=== PATIENT | male | born 1950 | race Caucasian/White ===

== ENCOUNTER 2018-01-19 16:03 | Observation (INO) ==
--- NOTE | 2018-01-19 16:52 | Emergency Department Note ---
Disposition Clinical Impression: Chest pain in adult Chest pain Qualifiers: Chest pain type: unspecified Qualified Code(s): R07.9 - Chest pain, unspecified Disposition: Admitted As Inpatient Condition: Undetermined Instructions: Chest Pain (ED), Diabetes Mellitus Type 2 in Adults (ED) Chest Pain HPI - General Chief Complaint: ED Chest Pain Stated Complaint: CP Time Seen by Provider: 01/19/18 16:23 Source: patient Limitations: no limitations - History of Present Illness HPI Narrative: The 67 years old male patient with known case of HTN , hyperlipidemia, DM-2 under insulin presented to ED for chest pain : the pain is 4-5/10 in intensity, localized to lower sub-sternal area sometime goes to the mid back , sharp- pressure type, intermittent in pattern, not associated with nausea , vomiting , SOB, palpitation, fever, trauma. He also denies any syncope/light-headedness. He didn't have similar episode in the past , he also denies any urinary urgency, frequency hesitancy. He further states that his BP and blood sugar has been higher range than before this time. He states that his BP and blood sugar were under control with medication before. Severity scale (1-10): 6 - Related Data Home Medications Medication Instructions Recorded Confirmed Aspirin [Lo-Dose Aspirin EC] 81 mg PO DAILY 04/21/16 08/27/16 Insulin Glargine,Hum.rec.anlog 20 unit SQ HS 04/21/16 08/27/16 [Lantus Solostar] Simvastatin [Zocor] 20 mg PO HS 04/21/16 08/27/16 glyBURIDE [GlyBURIDE] 10 mg PO BID 04/21/16 08/27/16 Fluticasone Propionate Nasal 120 spray NS DAILY 08/27/16 08/27/16 [Flonase] Latanoprost [Xalatan] 2.5 ml OP DAILY 08/27/16 08/27/16 Amitriptyline [Elavil] 01/19/18 Cholecalciferol (Vitamin D3) 01/19/18 [Vitamin D3] Lisinopril-HCTZ 20-12.5 [Prinzide 01/19/18 20-12.5] Previous Rx's Medication Instructions Recorded Amoxicillin/Clavulanate [Augmentin] 875 mg PO BIDWM #19 tablet 08/27/16 Allergies Allergy/AdvReac Type Severity Reaction Status Date / Time No Known Allergies Allergy Verified 08/27/16 21:16 All systems ED: reviewed and negative except as stated. Review of Systems: As Per HPI Constitutional: Reports: as per HPI. Denies: fever, chills, weakness Eyes: Reports: as per HPI. Denies: eye pain ENT ED: Reports: as per HPI. Denies: ear pain, throat pain Cardiovascular: Reports: as per HPI, chest pain, other (Chest pain in lower center chest goes toward mid back , not increase with movement ). Denies: palpitations, dyspnea on exertion, orthopnea, edema, syncope, paroxysmal nocturnal dyspnea Respiratory: Reports: as per HPI. Denies: cough, dyspnea, wheezes Gastrointestinal: Reports: as per HPI, abdominal pain. Denies: nausea, vomiting , diarrhea, constipation, hematemesis Genitourinary: Reports: as per HPI. Denies: urgency, dysuria, frequency, hematuria Musculoskeletal: Reports: as per HPI. Denies: back pain, neck pain, joint swelling Integumentary: Reports: as per HPI. Denies: rash, lesions Neurological: Reports: as per HPI. Denies: headache, weakness Psychiatric: Reports: as per HPI. Denies: anxiety, depression Endocrine: Reports: as per HPI. Denies: fatigue, heat or cold intolerance Hematological/Lymphatic: Reports: as per HPI. Denies: easy bleeding Allergic/Immunologic: Reports: as per HPI. Denies: facial swelling Chest Pain PMH - Past Medical History Medical history: Reports: coronary artery disease, diabetes, hyperlipidemia, hypertension Psychiatric history: Reports: no psych history - Social History Smoking Status: Never smoker Alcohol use: Reports: none Drug use: Reports: none Physical Exam - General Limitations: no limitations General appearance: alert, in no apparent distress - Head Head exam: atraumatic, normocephalic - Eye Eye exam: Present: normal appearance, PERRL, EOMI - ENT ENT exam: normal exam, normal oropharynx - Neck Neck exam: Present: normal inspection, full ROM - Chest Chest inspection: Present: normal inspection, symmetric chest wall rise - Respiratory Respiratory exam: Present: normal lung sounds bilaterally. Absent: respiratory distress, wheezes, accessory muscle use - Cardiovascular Cardiovascular exam: Present: regular rate, normal rhythm, normal heart sounds, +S1, +S2 - Abdominal Exam Abdominal exam: Present: soft, Non-Tender, distention, normal bowel sounds. Absent: guarding - Extremities Exam Extremities exam: Present: normal inspection, full ROM - Expanded Lower Extremity Exam Hip/Pelvis exam: Present: normal inspection - Back Exam Back exam: Present: normal inspection, full ROM. Absent: tenderness, CVA tenderness (R), CVA tenderness (L) - Neurological Exam Neurological exam: Present: alert, oriented X3, CN II-XII intact, normal gait, reflexes normal - Psychiatric Psychiatric exam: Present: normal affect, normal mood. Absent: depressed, agitated - Skin Skin exam: Present: warm, intact, normal color Course Course Narrative: The patient has chest pain with multiple risk factors: hyperlipidemia, HTN, DM , old age . We planned to work up for cardiac origin of pain. His BP and blood sugar ( glucometer ) was high , so we planned to R/O DKA, any foci of infection . His chest Xray is normal, Urinalysis negative , no keton bodies ,His blood sugar is high even though he is on Insulin . 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 Vital Signs Temperature 98.0 F 01/19/18 16:07 Pulse Rate 105 01/19/18 16:07 Respiratory Rate 16 01/19/18 16:07 Blood Pressure 129/78 01/19/18 16:07 O2 Sat by Pulse Oximetry 97 01/19/18 16:07 Temperature 98.0 F 01/19/18 16:07 Pulse Rate 94 01/19/18 17:10 Respiratory Rate 14 01/19/18 17:10 Blood Pressure 141/75 01/19/18 17:10 O2 Sat by Pulse Oximetry 99 01/19/18 17:10 Oxygen Delivery Oxygen Delivery Room Air Chest Pain - Lab Data Result diagrams: 01/19/18 16:46 01/19/18 16:46 Lab Results 01/19/18 01/19/18 01/19/18 Range/Units 16:33 16:34 16:46 WBC 12.9 H (4.3-11.1) K/mcL RBC 4.89 (4.19-5.50) M/mcL Hgb 13.4 (12.9-16.9) g/dL Hct 40.8 (37.5-50.1) % MCV 83.4 (83.0-100.0) fL MCH 27.4 L (28.0-33.3) pg MCHC 32.8 (31.6-35.5) g/dL RDW 12.7 (11.5-14.5) % Plt Count 230 (140-400) K/mcL MPV 11.1 (9.4-12.4) fL Immature Gran % 0.5 (0-4) % Seg Neutrophils % 82.2 % Lymphocytes % 11.0 % Monocytes % 5.1 % Eosinophils % 0.9 % Basophils % 0.3 % Neutrophils # 10.6 H (1.6-8.9) K/mcL Lymphocytes # 1.4 (0.6-4.6) K/mcL Monocytes # 0.7 (0.0-1.3) K/mcL Eosinophils # 0.1 (0.0-0.6) K/mcL Basophils # 0.0 (0.0-0.2) K/mcL Sodium (136-145) mEq/L Potassium (3.5-5.1) mEq/L Chloride (98-107) mEq/L Carbon Dioxide (23-29) mEq/L BUN (8-23) mg/dL Creatinine (0.70-1.30) mg/dL Est GFR ( Amer) (> 60) Est GFR (Non-Af Amer) (> 60) BUN/Creatinine Ratio (6-26) Glucose (70-105) mg/dL POC Glucose 341 H 354 H (70-99) mg/dL Calculated Osmolality (280-300) Calcium (8.6-10.3) mg/dL Troponin I (< 0.04) ng/mL Beta-Hydroxybutyric Acd (0.02-0.27) mmol/L Urine Color (Yellow) Urine Clarity (Clear) Urine pH (5.0-8.0) pH Units Ur Specific [place] (1.010-1.025) Urine Protein (Neg-Trace) mg/dL Urine Glucose (UA) (Normal) mg/dL Urine Ketones (Negative) mg/dL Urine Blood (Negative) Urine Nitrite (Negative) Urine Bilirubin (Negative) Urine Urobilinogen (Normal) mg/dL Ur Leukocyte Esterase (Negative) Ur Culture Indicated? (NO) 01/19/18 01/19/18 01/19/18 Range/Units 16:46 16:46 17:00 WBC (4.3-11.1) K/mcL RBC (4.19-5.50) M/mcL Hgb (12.9-16.9) g/dL Hct (37.5-50.1) % MCV (83.0-100.0) fL MCH (28.0-33.3) pg MCHC (31.6-35.5) g/dL RDW (11.5-14.5) % Plt Count (140-400) K/mcL MPV (9.4-12.4) fL Immature Gran % (0-4) % Seg Neutrophils % % Lymphocytes % % Monocytes % % Eosinophils % % Basophils % % Neutrophils # (1.6-8.9) K/mcL Lymphocytes # (0.6-4.6) K/mcL Monocytes # (0.0-1.3) K/mcL Eosinophils # (0.0-0.6) K/mcL Basophils # (0.0-0.2) K/mcL Sodium 134 L (136-145) mEq/L Potassium 4.4 (3.5-5.1) mEq/L Chloride 97 L (98-107) mEq/L Carbon Dioxide 28 (23-29) mEq/L BUN 27 H (8-23) mg/dL Creatinine 1.58 H (0.70-1.30) mg/dL Est GFR ( Amer) 53 L (> 60) Est GFR (Non-Af Amer) 44 L (> 60) BUN/Creatinine Ratio 17 (6-26) Glucose 353 H (70-105) mg/dL POC Glucose (70-99) mg/dL Calculated Osmolality 297 (280-300) Calcium 10.1 (8.6-10.3) mg/dL Troponin I < 0.03 (< 0.04) ng/mL Beta-Hydroxybutyric Acd 0.14 (0.02-0.27) mmol/L Urine Color Yellow (Yellow) Urine Clarity Clear (Clear) Urine pH 5.5 (5.0-8.0) pH Units Ur Specific [place] > 1.030 H (1.010-1.025) Urine Protein Negative (Neg-Trace) mg/dL Urine Glucose (UA) >=1000 H (Normal) mg/dL Urine Ketones Negative (Negative) mg/dL Urine Blood Negative (Negative) Urine Nitrite Negative (Negative) Urine Bilirubin Negative (Negative) Urine Urobilinogen Normal (Normal) mg/dL Ur Leukocyte Esterase Negative (Negative) Ur Culture Indicated? NO (NO)
[2018-01-19 16:57] LABS: Basophils % 0.3 %; Eosinophils # 0.1 K/mcL (0.0-0.6); Eosinophils % 0.9 %; Hematocrit 40.8 % (37.5-50.1); Hemoglobin 13.4 g/dL (12.9-16.9); Immature Granulocytes % 0.5 % (0-4); Lymphocytes # 1.4 K/mcL (0.6-4.6); Mean Corpuscular HGB Conc 32.8 g/dL (31.6-35.5); Mean Corpuscular Hemoglobin 27.4 pg (28.0-33.3); Mean Corpuscular Volume 83.4 fL (83.0-100.0); Mean Platelet Volume 11.1 fL (9.4-12.4); Monocytes # 0.7 K/mcL (0.0-1.3); Monocytes % 5.1 %; Neutrophils # 10.6 K/mcL (1.6-8.9); Platelet Count 230 K/mcL (140-400); Red Blood Count 4.89 M/mcL (4.19-5.50); Red Cell Distribution Width 12.7 % (11.5-14.5); Segmented Neutrophils % 82.2 %
[2018-01-19 17:18] LABS: BUN/Creatinine Ratio 17 (6-26); Blood Urea Nitrogen 27 mg/dL (8-23); Calcium 10.1 mg/dL (8.6-10.3); Carbon Dioxide 28 mEq/L (23-29); Chloride 97 mEq/L (98-107); Glucose 353 mg/dL (70-105); Osmolality,Calculated 297 (280-300); Potassium 4.4 mEq/L (3.5-5.1); Sodium 134 mEq/L (136-145); Troponin I < 0.03 ng/mL (< 0.04); eGFR For Non-African Americans 44 (> 60)
[2018-01-19 17:20] LABS: Bilirubin,Urine Negative (Negative); Blood,Urine Negative (Negative); Clarity,Urine Clear (Clear); Color,Urine Yellow (Yellow); Glucose,Urine (UA) >=1000 mg/dL (Normal); Ketones,Urine Negative (Negative); Leukocyte Esterase,Urine Negative (Negative); Nitrite,Urine Negative (Negative); PH,Urine 5.5 pH Units (5.0-8.0); Protein,Urine Negative (Neg-Trace); Specific Gravity,Urine > 1.030 (1.010-1.025); Urobilinogen,Urine Normal (Normal)
--- NOTE | 2018-01-19 17:50 | Emergency Department Note ---
Disposition Clinical Impression: Chest pain in adult Chest pain Qualifiers: Chest pain type: unspecified Qualified Code(s): R07.9 - Chest pain, unspecified Disposition: Admitted As Inpatient Condition: Good Referrals: Robbie Evans CNP [Primary Care Provider] - Forms: ED Satisfaction Letter Time of Disposition: 18:14 General Adult HPI - General Chief complaint: ED Chest Pain Stated complaint: CP Time Seen by Provider: 01/19/18 16:23 Source: patient Limitations: no limitations Nursing Notes Reviewed: Yes Vital Signs Reviewed: Yes - History of Present Illness HPI Narrative: 67 year old male presents to the ED with complaints of chest pain tht started last night and state that this is first time occurance although he has some risk factors including DM-insulin dependents, HTN, cholesterol issue which are medically managed he has missed a few dose of his insulin therpay becuase his has been in the hospital and he has been sleeping on a couch and was sleeping in a wierd position and started to have some pain in his chest that rdaites to his back ad position make it worse and staet tht he took his GERD medication and tums and it helped. Christine states that currently he is chest pain free and is not experiencing diaphoresis or exertionl dyspnea. Pain Scale: 6 - Related Data Home Medications Medication Instructions Recorded Confirmed Aspirin [Lo-Dose Aspirin EC] 81 mg PO DAILY 04/21/16 08/27/16 Insulin Glargine,Hum.rec.anlog 20 unit SQ HS 04/21/16 08/27/16 [Lantus Solostar] Simvastatin [Zocor] 20 mg PO HS 04/21/16 08/27/16 glyBURIDE [GlyBURIDE] 10 mg PO BID 04/21/16 08/27/16 Fluticasone Propionate Nasal 120 spray NS DAILY 08/27/16 08/27/16 [Flonase] Latanoprost [Xalatan] 2.5 ml OP DAILY 08/27/16 08/27/16 Amitriptyline [Elavil] 01/19/18 Cholecalciferol (Vitamin D3) 01/19/18 [Vitamin D3] Lisinopril-HCTZ 20-12.5 [Prinzide 01/19/18 20-12.5] Previous Rx's Medication Instructions Recorded Amoxicillin/Clavulanate [Augmentin] 875 mg PO BIDWM #19 tablet 08/27/16 Allergies Allergy/AdvReac Type Severity Reaction Status Date / Time No Known Allergies Allergy Verified 08/27/16 21:16 Constitutional: Reports: as per HPI. Denies: fever, chills, weakness Eyes: Reports: as per HPI. Denies: eye pain ENT ED: Reports: as per HPI. Denies: ear pain, throat pain Cardiovascular: Reports: as per HPI, chest pain, other (Chest pain in lower center chest goes toward mid back , not increase with movement ). Denies: palpitations, dyspnea on exertion, orthopnea, edema, syncope, paroxysmal nocturnal dyspnea Respiratory: Reports: as per HPI. Denies: cough, dyspnea, wheezes Gastrointestinal: Reports: as per HPI, abdominal pain. Denies: nausea, vomiting , diarrhea, constipation, hematemesis Genitourinary: Reports: as per HPI. Denies: urgency, dysuria, frequency, hematuria Musculoskeletal: Reports: as per HPI. Denies: back pain, neck pain, joint swelling Integumentary: Reports: as per HPI. Denies: rash, lesions Neurological: Reports: as per HPI. Denies: headache, weakness Psychiatric: Reports: as per HPI. Denies: anxiety, depression Endocrine: Reports: as per HPI. Denies: fatigue, heat or cold intolerance Hematological/Lymphatic: Reports: as per HPI. Denies: easy bleeding Allergic/Immunologic: Reports: as per HPI. Denies: facial swelling Past Medical History - Past Medical History Medical history: Reports: coronary artery disease, diabetes, hyperlipidemia, hypertension Psychiatric history: Reports: no psych history - Social History Smoking Status: Never smoker Smokeless Tobacco Status: No Alcohol use: Reports: none Drug use: Reports: none Physical Exam - General Limitations: no limitations General appearance: alert, in no apparent distress - Head Head exam: atraumatic, normocephalic, normal inspection - Eye Eye exam: Present: normal appearance, PERRL, EOMI - Expanded Eye Exam Pupils: Left: reactive - ENT ENT exam: normal exam, normal oropharynx, mucous membranes moist - Expanded ENT Exam External ear exam: Present: normal external inspection Mouth exam: Present: normal external inspection Teeth exam: Present: normal inspection Throat exam: Present: normal inspection - Neck Neck exam: Present: normal inspection, full ROM, trachea midline - Chest Chest inspection: Present: normal inspection, symmetric chest wall rise - Respiratory Respiratory exam: Present: normal lung sounds bilaterally - Cardiovascular Cardiovascular exam: Present: regular rate, normal rhythm, normal heart sounds - Abdominal Exam Abdominal exam: Present: soft, Non-Tender. Absent: tenderness, distention, guarding, rebound, rigidity - Extremities Exam Extremities exam: Present: normal inspection, full ROM. Absent: tenderness, pedal edema - Expanded Upper Extremity Exam Shoulder exam: Present: normal inspection, full ROM Arm exam: Present: normal inspection, full ROM Elbow exam: Present: normal inspection, full ROM Forearm/Wrist exam: Present: normal inspection, full ROM Hand exam: Present: normal inspection, full ROM Vascular exam: Normal: capillary refill, radial pulse - Expanded Lower Extremity Exam Hip/Pelvis exam: Present: normal inspection, full ROM Upper leg exam: Present: normal inspection, full ROM Knee exam: Present: normal inspection, full ROM Lower leg exam: Present: normal inspection, full ROM Ankle exam: Present: normal inspection, full ROM Foot/toe exam: Present: normal inspection, full ROM Neurovascular/Tendon exam: Absent: motor deficit, sensory deficit, tendon deficit - Back Exam Back exam: Present: normal inspection, full ROM. Absent: tenderness - Neurological Exam Neurological exam: Present: alert, oriented X3 - Expanded Neurological Exam Patient oriented to: Present: person, place, time Coma Scale Eye Opening: Spontaneous Coma Scale Motor Response: Obeys Commands Coma Scale Verbal Response: Oriented Coma Scale Total: 15 - Psychiatric Psychiatric exam: Present: normal affect, normal mood - Skin Skin exam: Present: warm, dry, intact, normal color Course Course Narrative: I have offered christine admission to the hospital today for futher evlaution of ACS secondary to moderate heart score and he has declined therapy at this time and would like to attempet outpatine evalaution. Christine sttates that he missed a dose of insulin today which is why his glucose is elevated and that ther eis no GAP or acidosis. Christine will be discharge home with followup camelia vázquez. He will be asked to conitnue thi medication regimen and to try notto miss any dose. Christine has been educated on signs and symtpoms to rtutn ot the ED for ACS. Christine understands discharge instructions and comprehends indications to rturn ot the Ed. This was discussed infront of hsi daughter. - Reevaluation(s) Reevaluation #1: christine has changed his mind and would like to be admitted to the hospital. We will admit to medicine. Time: 18:04 - Consultations Consultation #1: discussed case with Dr. Matri and she accepts christine to her service. Time: 18:13 Vital Signs Temperature 98.0 F 01/19/18 16:07 Pulse Rate 105 01/19/18 16:07 Respiratory Rate 16 01/19/18 16:07 Blood Pressure 129/78 01/19/18 16:07 O2 Sat by Pulse Oximetry 97 01/19/18 16:07 Temperature 98.0 F 01/19/18 16:07 Pulse Rate 94 01/19/18 17:10 Respiratory Rate 14 01/19/18 17:10 Blood Pressure 141/75 01/19/18 17:10 O2 Sat by Pulse Oximetry 99 01/19/18 17:10 Oxygen Delivery Oxygen Delivery Room Air Medical Decision Making - Lab Data Result diagrams: 01/19/18 16:46 01/19/18 16:46 Lab Results 01/19/18 01/19/18 01/19/18 Range/Units 16:33 16:34 16:46 WBC 12.9 H (4.3-11.1) K/mcL RBC 4.89 (4.19-5.50) M/mcL Hgb 13.4 (12.9-16.9) g/dL Hct 40.8 (37.5-50.1) % MCV 83.4 (83.0-100.0) fL MCH 27.4 L (28.0-33.3) pg MCHC 32.8 (31.6-35.5) g/dL RDW 12.7 (11.5-14.5) % Plt Count 230 (140-400) K/mcL MPV 11.1 (9.4-12.4) fL Immature Gran % 0.5 (0-4) % Seg Neutrophils % 82.2 % Lymphocytes % 11.0 % Monocytes % 5.1 % Eosinophils % 0.9 % Basophils % 0.3 % Neutrophils # 10.6 H (1.6-8.9) K/mcL Lymphocytes # 1.4 (0.6-4.6) K/mcL Monocytes # 0.7 (0.0-1.3) K/mcL Eosinophils # 0.1 (0.0-0.6) K/mcL Basophils # 0.0 (0.0-0.2) K/mcL Sodium (136-145) mEq/L Potassium (3.5-5.1) mEq/L Chloride (98-107) mEq/L Carbon Dioxide (23-29) mEq/L BUN (8-23) mg/dL Creatinine (0.70-1.30) mg/dL Est GFR ( Amer) (> 60) Est GFR (Non-Af Amer) (> 60) BUN/Creatinine Ratio (6-26) Glucose (70-105) mg/dL POC Glucose 341 H 354 H (70-99) mg/dL Calculated Osmolality (280-300) Calcium (8.6-10.3) mg/dL Troponin I (< 0.04) ng/mL Beta-Hydroxybutyric Acd (0.02-0.27) mmol/L Urine Color (Yellow) Urine Clarity (Clear) Urine pH (5.0-8.0) pH Units Ur Specific [place] (1.010-1.025) Urine Protein (Neg-Trace) mg/dL Urine Glucose (UA) (Normal) mg/dL Urine Ketones (Negative) mg/dL Urine Blood (Negative) Urine Nitrite (Negative) Urine Bilirubin (Negative) Urine Urobilinogen (Normal) mg/dL Ur Leukocyte Esterase (Negative) Ur Culture Indicated? (NO) 01/19/18 01/19/18 01/19/18 Range/Units 16:46 16:46 17:00 WBC (4.3-11.1) K/mcL RBC (4.19-5.50) M/mcL Hgb (12.9-16.9) g/dL Hct (37.5-50.1) % MCV (83.0-100.0) fL MCH (28.0-33.3) pg MCHC (31.6-35.5) g/dL RDW (11.5-14.5) % Plt Count (140-400) K/mcL MPV (9.4-12.4) fL Immature Gran % (0-4) % Seg Neutrophils % % Lymphocytes % % Monocytes % % Eosinophils % % Basophils % % Neutrophils # (1.6-8.9) K/mcL Lymphocytes # (0.6-4.6) K/mcL Monocytes # (0.0-1.3) K/mcL Eosinophils # (0.0-0.6) K/mcL Basophils # (0.0-0.2) K/mcL Sodium 134 L (136-145) mEq/L Potassium 4.4 (3.5-5.1) mEq/L Chloride 97 L (98-107) mEq/L Carbon Dioxide 28 (23-29) mEq/L BUN 27 H (8-23) mg/dL Creatinine 1.58 H (0.70-1.30) mg/dL Est GFR ( Amer) 53 L (> 60) Est GFR (Non-Af Amer) 44 L (> 60) BUN/Creatinine Ratio 17 (6-26) Glucose 353 H (70-105) mg/dL POC Glucose (70-99) mg/dL Calculated Osmolality 297 (280-300) Calcium 10.1 (8.6-10.3) mg/dL Troponin I < 0.03 (< 0.04) ng/mL Beta-Hydroxybutyric Acd 0.14 (0.02-0.27) mmol/L Urine Color Yellow (Yellow) Urine Clarity Clear (Clear) Urine pH 5.5 (5.0-8.0) pH Units Ur Specific [place] > 1.030 H (1.010-1.025) Urine Protein Negative (Neg-Trace) mg/dL Urine Glucose (UA) >=1000 H (Normal) mg/dL Urine Ketones Negative (Negative) mg/dL Urine Blood Negative (Negative) Urine Nitrite Negative (Negative) Urine Bilirubin Negative (Negative) Urine Urobilinogen Normal (Normal) mg/dL Ur Leukocyte Esterase Negative (Negative) Ur Culture Indicated? NO (NO)
[2018-01-19] MEDS ORDERED: Aspirin 325 MG TABLET PO ONE (18:03)
[2018-01-19] MEDS ORDERED: Naloxone 0.4 MG/ML INJ IVP PRN (18:51)
[2018-01-19] MEDS ORDERED: Acetaminophen 325 MG TABLET PO PRN (18:51)
[2018-01-19] MEDS ORDERED: *HR* HYDROcodone/Acet 5/325 mg TABLET PO PRN (18:54)
[2018-01-19] MEDS ORDERED: Dextrose Gel 15 GM/37.5 ML TUBE PO PRN ×2 (18:55)
[2018-01-19] MEDS ORDERED: Fluticasone Propionate Nasal 50 MCG/SPRAY BOTTLE NS PRN ×2 (18:55→19:15)
[2018-01-19] MEDS ORDERED: D5% in Water 1,000 ML IVC PRN (18:55)
[2018-01-19] MEDS ORDERED: *HR* Dextrose 50 % in Water (Syg) 50 ML SYRINGE IVP PRN (18:55)
[2018-01-19] MEDS ORDERED: Nitroglycerin 0.4 MG TAB.SUBL SL PRN (18:56)
[2018-01-19] MEDS ORDERED: GI Cocktail 40 ML EACH PO ONE (18:58)
--- NOTE | 2018-01-19 19:03 | Internal Med History&Physical ---
Date of Encounter: 01/19/18 Time of Encounter: 18:00 Internal Medicine - H&P: HPI Chief complaint: CP Admitted From: Emergency Dept Plans for Post Hospital Care: Home History of present illness: Mr. Helton is a 67 year old male w/PMH of diabetes controlled with oral medications and insulin, GERD, HLD, and HTN presents from the ED with chief complaint of chest pain that began last night at approximately 10 PM and patient describes a centralized in his chest with sharp and stabbing pain that was intermittent w/radiation to back. Patient reports diaphoresis but denies nausea, vomiting, shortness of breath. States symptoms have never happened before. Patient denies previous cardiac workup or history. Patient also states he has history of GERD and is unsure of symptoms or heartburn or cardiac related. She states she has not felt well for the past 2 weeks. 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 No alleviating or aggravating factors. Patient denies recent illness, fever, chills, nausea, vomiting, headache, changes in vision, unusual bleeding, abdominal pain, cough, chest congestion, diarrhea, constipation, dizziness, lightheadedness, numbness, tingling, pre-syncope, or syncope. Past Med Surg Social Fam HX - Past Medical History Source: patient, old records reviewed, obtained from family Medical history: diabetes, hyperlipidemia, hypertension Additional medical history: Sinus problems Psychiatric history: no psych history - Past Surgical History Additional surgical history: Bilateral inguinal hernia repair. - Social History Smoking Status: Never smoker Smokeless Tobacco Status: No Alcohol use: none Drug use: none Current living situation: Home, With Family Activity Level: Independent ambulation, Very active Recent Out of Country Travel Within the Last 8 Weeks: No Exposure or Possible Exposure to Illness During Travel: No - Family History Father Race: Family Member Ethnicity: Non- Living Status: Still Living Hx Family GI Disorders: Yes (Hernia) Hx Family HEENT Disorders: Yes (Cataracts, Glaucoma) Mother Race: Family Member Ethnicity: Non- Living Status: Still Living Hx Family Cardiac Disorders: Yes (HTN) Hx Family Genitourinary Disorders: Yes (CKD) Hx Family HEENT Disorders: Yes (Cataracts) Sister Race: Family Member Ethnicity: Non- Living Status: Still Living Hx Family Medical Disorders: No Internal Medicine - H&P: Meds Aspirin [Lo-Dose Aspirin EC] 81 mg PO DAILY 04/21/16 [History] Insulin Glargine,Hum.rec.anlog [Lantus Solostar] 30 unit SQ QAM 04/21/16 [ History] Simvastatin [Zocor] 20 mg PO HS 04/21/16 [History] Fluticasone Propionate Nasal [Flonase] 120 spray NS DAILY PRN 08/27/16 [History] Latanoprost [Xalatan] 1 drop BOTH EYES DAILY 08/27/16 [History] Amitriptyline [Elavil] 50 mg PO HS 01/19/18 [History] Cholecalciferol (Vitamin D3) [Vitamin D3] 2,000 tab PO BID 01/19/18 [History] Insulin ASPART [Novolog Flexpen] 12 unit SQ TID 01/19/18 [History] Insulin Glargine,Hum.rec.anlog [Lantus Solostar] 50 unit SQ HS 01/19/18 [History ] Lisinopril-HCTZ 20-12.5 [Prinzide 20-12.5] 1 tab PO QAM 01/19/18 [History] Ranitidine HCl [Acid Wooden Fence Erector] 150 mg PO HS 01/19/18 [History] Saxagliptin HCl [Onglyza] 2.5 mg PO HS 01/19/18 [History] 3 Allergy/AdvReac Type Severity Reaction Status Date / Time No Known Allergies Allergy Verified 01/19/18 18:38 All Systems PM: A 10-system review of systems was performed and is negative for pertinent findings except as documented above in the HPI. - Constitutional Constitutional: no chills, no fever(s), no night sweats - EENT Eyes: no change in vision, no discharge, no pain, no photophobia Ears: no ear discharge, no ear pain, no tinnitus Nose, mouth and throat: no dysphagia, no nasal discharge, no neck pain, no sore throat - Breasts Breasts: as per HPI - Cardiovascular Cardiovascular ROS IM: as per HPI, chest pain, no diaphoresis, no dyspnea, no lightheadedness, no palpitations, no syncope - Respiratory Respiratory: no cough, no dyspnea, no wheezing, no excessive phlegm production - Gastrointestinal Gastrointestinal: as per HPI, belching, heartburn, no abdominal pain, no diarrhea, no hematemesis, no hematochezia, no melena, no nausea, no vomiting - Genitourinary Genitourinary ROS male: as per HPI - Musculoskeletal Musculoskeletal ROS IM: no numbness, no tingling - Integumentary Integumentary IM: no rash, no unusual bruising - Neurological Neurological ROS: no confusion, no convulsions, no focal weakness, no numbness, no tingling, no tremor(s) - Psychiatric Psychiatric: as per HPI - Endocrine Endocrine IM: as per HPI - Hematologic/Lymphatic Hematologic/Lymphatic: no easy bruising - Allergic/Immunologic Allergic/Immunologic: as per HPI - Constitutional Vitals: Temp Pulse Resp BP Pulse Ox 98.0 F 88 16 143/89 100 01/19/18 16:07 01/19/18 18:33 01/19/18 18:33 01/19/18 18:33 01/19/18 18:33 General appearance: Present: cooperative, A&O X 3, pleasant, no acute distress, answers questions appropriately Exam: Patient examined at bedside in the ED. Patient reports chest pain began approximately 10 PM last night and was sharp and stabbing pain and centralized chest with some radiation to his back. Diaphoresis. Denies previous occurrence , cardiac workup, or cardiac history. Denies chest pain during exam as well as any other complaints at this time. Patient reports history of GERD and heartburn. VS: 98.0F temp, HR 88, RR 16, BP 143/89, SPO2 100% on room air. - Head Head exam: Present: atraumatic, normocephalic - Eye Eye exam: Present: PERRL, conjuntiva pink, sclera anicteric Pupils: Present: PERRL - ENT ENT exam: Present: normal exam - Neck Neck exam general surgery: Present: normal inspection, supple, trachea midline. Absent: lymphadenopathy - Respiratory Respiratory exam: Present: CTAB. Absent: accessory muscle use, rales, rhonchi, wheezes - Cardiovascular Cardiovascular exam: Present: RRR, +S1, +S2. Absent: diastolic murmur, gallop, rubs, systolic murmur - GI/Abdominal GI/Abdominal exam: Present: normal bowel sounds, soft, no peritoneal signs. Absent: distended, tenderness - Rectal Rectal exam: Present: deferred - Additional comments: exam deferred. - Extremities Exam Extremities exam: Present: warm, radial pulses palpable and symmetrical. Absent : calf tenderness, cyanotic, pedal edema - Back Exam Back exam: Present: normal inspection - Neurological Exam Neurological exam: Present: alert, CN II-XII intact, oriented X3, no focal deficits. Absent: pronater drift, facial droop, speech deficit - Psychiatric Psychiatric exam: Present: normal affect, normal mood - Skin Skin exam: Present: dry, intact Internal Med - H&P Results - Labs CBC & Chem 7: 01/19/18 16:46 01/19/18 16:46 - EKG Data EKG shows normal: sinus rhythm - EKG Data Prior EKG available for review: no EKG comments: 01/19/18 19:05 EKG dated 01/19/18 shows sinus rhythm with inferior myocardial infarction, probably old. - Diagnostic Studies Chest x-ray Additional comments: Impressions Chest X-Ray 01/19/18 16:13 IMPRESSION: No acute cardiopulmonary disease or significant interval change from prior study 02/28/2015. D/ / Ahmet Gresham / Ahmet Gresham Interpreting Provider: Ahmet Gresham - Assessment and plan (1) Chest pain Current Visit: Yes Status: Acute Assessment and plan: Acute CP that began last night at approximately 10 PM and patient describes a centralized in his chest with sharp and stabbing pain that was intermittent w/ radiation to back. Patient reports diaphoresis but denies nausea, vomiting, shortness of breath. States symptoms have never happened before. Patient denies previous cardiac workup or history. Patient also states he has history of GERD and is unsure of symptoms or heartburn or cardiac related. Initial troponin <0.03. Will trend. 80 mg Lipitor ONCE. 325 mg aspirin in ED. Continue 81 mg ASA daily tomorrow. SL Nitro PRN. Echocardiogram. NPO at midnight for exercise stress test in a.m. if troponins remain WNL. Continuous cardiac telemetry. Supplemental O2 w/titration and SpO2 monitoring PRN. GI cocktail. IVP Protonix 40 mg daily. Consider Cardiology consult if troponins, Echocardiogram, and/or stress test results abnormal. Pt. is high risk for further morbidity and complications based on new onset of CP, poorly controlled HTN and blood glucose, hx, and risk factors. Observation. Qualifiers: Chest pain type: other chest pain Qualified Code(s): R07.89 - Other chest pain; R07.8 - Other chest pain (2) Diabetes Current Visit: Yes Status: Chronic Assessment and plan: Hx of chronic diabetes controlled with oral medications and insulin. Hold patient's Saxagliptin and continue pts. insulin. Will add medium-dose correction sliding scale insulin and hypoglycemic protocol. BG checks ACHS. A1c in a.m. labs. Cardiac/ADA diet. Qualifiers: Diabetes mellitus type: type 1 Diabetes mellitus complication status: with unspecified complications Qualified Code(s): E10.8 - Type 1 diabetes mellitus with unspecified complications (3) HLD (hyperlipidemia) Current Visit: Yes Status: Chronic Assessment and plan: Hx of chronic HLD. Lipid panel in a.m. labs. 80 mg Lipitor now d/t CP. Continue pts. Zocor 20 mg tomorrow. Qualifiers: Hyperlipidemia type: pure hypercholesterolemia Qualified Code(s): E78.00 - Pure hypercholesterolemia, unspecified; E78.0 - Pure hypercholesterolemia (4) HTN (hypertension) Current Visit: Yes Status: Chronic Assessment and plan: Hx of chronic HTN. Monitor pt. and VS. continue patient's Prinzide and add IVPB hydralazine 10 mg every 6 hours when necessary with parameters. Qualifiers: Hypertension type: essential hypertension Qualified Code(s): I10 - Essential (primary) hypertension (5) GERD (gastroesophageal reflux disease) Current Visit: Yes Status: Chronic Assessment and plan: Hx of chronic GERD. Will hold pts. PO ranitidine and administer 40 mg IVP Protonix daily. GI cocktail. IVP Zofran 4 mg every 6 hours when necessary for nausea and vomiting. Qualifiers: Esophagitis presence: esophagitis presence not specified Qualified Code(s) : K21.9 - Gastro-esophageal reflux disease without esophagitis (6) Glaucoma Current Visit: Yes Status: Chronic Assessment and plan: Hx of chronic glaucoma in bilateral eyes. Continue Latanoprost drops. Qualifiers: Glaucoma type: unspecified Laterality: bilateral Qualified Code(s): H40.9 - Unspecified glaucoma (7) DVT prophylaxis Current Visit: Yes Status: Acute Assessment and plan: Heparin 5,000 units SQ Q8HR for DVT prophylaxis. Monitor pt. for signs of bleeding. - Time Spent With Patient Total time spent is greater than 50% in coordination of care (as documented) at patient's floor/unit and/or counseling patient: Greater than 35 minutes
[2018-01-19] MEDS ORDERED: Ondansetron 4 MG/2 ML VIAL IVP PRN (19:18)
[2018-01-19] MEDS ORDERED: 0.9 % Sodium Chloride 1,000 ML IVC SCH (20:15)
[2018-01-19] MEDS ORDERED: SAXAGLIPTIN HCL 2.5 MG PO SCH (21:00)
[2018-01-19] MEDS ORDERED: Insulin LISPRO 300 UNITS/3 ML VIAL SQ SCH (21:00)
[2018-01-19] MEDS ORDERED: Insulin DETEMIR 100 UNIT/ML X5UNITS SQ SCH ×2 (21:00→21:15)
[2018-01-19] MEDS: Cholecalciferol (D-3) 1,000 UNIT TABLET PO SCH (21:34)
[2018-01-19] MEDS: Pantoprazole 40 MG VIAL IVP SCH (21:35)
[2018-01-19] MEDS: *HR* Heparin 5,000 UNIT/ML VIAL SQ SCH (21:35)
[2018-01-19] MEDS: Insulin LISPRO 300 UNITS/3 ML VIAL SQ SCH (21:59)
[2018-01-20 04:47] LABS: Adenovirus Not Detected (Not Detect); Bordetella Pertussis Not Detected (Not Detect); Chlamydophila pneumoniae Not Detected (Not Detect); Coronavirus 229E Not Detected (Not Detect); Coronavirus HKU1 Not Detected (Not Detect); Coronavirus NL63 Not Detected (Not Detect); Coronavirus OC43 Not Detected (Not Detect); Human Metapneumovirus Not Detected (Not Detect); Human Rhinovirus/Enterovirus Not Detected (Not Detect); Influenza A Subtype 2009 H1 Not Detected (Not Detect); Influenza A Untypeable Not Detected (Not Detect); Influenza B Not Detected (Not Detect); Mycoplasma pneumoniae Not Detected (Not Detect); Parainfluenza Virus 1 Not Detected (Not Detect); Parainfluenza Virus 2 Not Detected (Not Detect); Parainfluenza Virus 3 Not Detected (Not Detect); Parainfluenza Virus 4 Not Detected (Not Detect); Respiratory Syncytial Virus Not Detected (Not Detect)
[2018-01-20] MEDS: *HR* Heparin 5,000 UNIT/ML VIAL SQ SCH (05:07)
[2018-01-20 05:13] LABS: Basophils # 0.1 K/mcL (0.0-0.2); Basophils % 0.8 %; Eosinophils # 0.2 K/mcL (0.0-0.6); Eosinophils % 2.7 %; Hemoglobin 12.1 g/dL (12.9-16.9); Immature Granulocytes % 0.3 % (0-4); Lymphocytes # 2.1 K/mcL (0.6-4.6); Lymphocytes % 26.3 %; Mean Corpuscular HGB Conc 33.6 g/dL (31.6-35.5); Mean Corpuscular Hemoglobin 27.9 pg (28.0-33.3); Mean Corpuscular Volume 83.1 fL (83.0-100.0); Mean Platelet Volume 11.2 fL (9.4-12.4); Monocytes # 0.5 K/mcL (0.0-1.3); Platelet Count 218 K/mcL (140-400); Red Blood Count 4.33 M/mcL (4.19-5.50); Red Cell Distribution Width 12.7 % (11.5-14.5); Segmented Neutrophils % 63.9 %
[2018-01-20 05:35] LABS: Albumin 3.8 g/dL (3.5-5.7); Albumin/Globulin Ratio 1.6 (1.1-2.2); Bilirubin,Total 0.9 mg/dL (0.3-1.0); Globulin 2.4 g/dL (2.4-3.5); Total Protein 6.2 g/dL (6.4-8.9)
[2018-01-20 06:03] LABS: Estimated Average Glucose 229 mg/dl; Hemoglobin A1C 9.6 %
[2018-01-20] MEDS: Pantoprazole 40 MG VIAL IVP SCH (08:37)
[2018-01-20] MEDS: Insulin LISPRO 300 UNITS/3 ML VIAL SQ SCH ×4 (08:42→12:15)
[2018-01-20] MEDS ORDERED: Latanoprost 2.5 ML BOTTLE BOTH EYES SCH (09:00)
[2018-01-20] MEDS ORDERED: Insulin DETEMIR 100 UNIT/ML X5UNITS SQ SCH (09:00)
[2018-01-20] MEDS ORDERED: Lisinopril-HCTZ 20-12.5mg TABLET PO SCH (09:00)
[2018-01-20] MEDS ORDERED: Aspirin Enteric Coated 81 MG Tablet PO SCH (09:00)
--- NOTE | 2018-01-20 09:25 | Internal Med Progress Note ---
Hospitalist Progress Note - Encounter Date of Encounter: 01/20/18 Time of Encounter: 09:23 - Subjective Interval History: Pt seen and examined, he has no chest pain right now. - Exam Vitals: Temp Pulse Resp BP Pulse Ox 97.5 F L 80 19 143/81 98 01/20/18 07:43 01/20/18 07:43 01/20/18 07:43 01/20/18 07:43 01/20/18 07:43 Exam: PHYSICAL EXAMINATION: GENERAL APPEARANCE: The patient is alert, oriented and in no acute distress. HEENT: Head is normocephalic. The sinuses are nontender. Pupils are equal and reactive. The nares are patent. Oropharynx clear without lesions. NECK: Supple without lymphadenopathy. HEART: Regular rate and rhythm. LUNGS: No crackles or wheezes are heard. ABDOMEN: Soft, nontender, nondistended with good bowel sounds heard. Inguinal area is normal. EXTREMITIES: Without cyanosis, clubbing or edema. NEUROLOGICAL: Gross nonfocal. SKIN: Warm and dry without any rash. - Assessment and Plan (1) Chest pain Current Visit: Yes Status: Acute Assessment and Plan: 67-year-old male with history of hypertension, diabetes, and hyperlipidemia presented with atypical chest pain. Heart score is 5, moderate risk. Echocardiogram and stress test ordered, will follow up with results. (2) Diabetes Current Visit: Yes Status: Chronic Assessment and Plan: Hemoglobin A1c 9.6, patient currently taking, oral agent, bolus, and basal insulin. We will hold rekha agent for now. continue home dose of insulin, adjust the dose, started patient on insulin sliding scale. (3) HLD (hyperlipidemia) Current Visit: Yes Status: Chronic Assessment and Plan: Good LDL but low HDL level. continue Zocor. (4) HTN (hypertension) Current Visit: Yes Status: Chronic Assessment and Plan: Monitoring BP, continue home medication. (5) GERD (gastroesophageal reflux disease) Current Visit: Yes Status: Chronic Assessment and Plan: Continue home medication. (6) DVT prophylaxis Current Visit: Yes Status: Acute Assessment and Plan: Heparin 5,000 units SQ Q8HR for DVT prophylaxis. Monitor pt. for signs of bleeding. (7) Glaucoma Current Visit: Yes Status: Chronic Assessment and Plan: Hx of chronic glaucoma in bilateral eyes. Continue Latanoprost drops. - Time Spent with Patient Total time spent is greater than 50% in coordination of care (as documented) at patient's floor/unit and/or counseling patient: Greater than 35 minutes Plan of Care Discussed with: patient Internal Medicine: Result - Labs CBC & Chem 7: 01/20/18 04:30 01/20/18 04:30 Labs: Short CBC 01/20/18 Range/Units 04:30 WBC 7.9 (4.3-11.1) K/mcL Hgb 12.1 L (12.9-16.9) g/dL Hct 36.0 L (37.5-50.1) % Plt Count 218 (140-400) K/mcL Neutrophils # 5.0 (1.6-8.9) K/mcL BMP 01/20/18 04:30 Sodium 135 L Potassium 4.0 Chloride 100 Carbon Dioxide 27 BUN 29 H Creatinine 1.54 H Glucose 301 H Calcium 9.0 Cardiac Enzymes 01/19/18 01/20/18 Range/Units 22:20 04:30 Troponin I < 0.03 < 0.03 (< 0.04) ng/mL Liver Function 01/20/18 Range/Units 04:30 Total Bilirubin 0.9 (0.3-1.0) mg/dL AST 12 L (13-39) Units/L ALT 14 (7-52) Units/L Alkaline Phosphatase 59 (34-104) Units/L Albumin 3.8 (3.5-5.7) g/dL Consult Discharge Plan - Plan Instructions: Chest Pain (ED), Diabetes Mellitus Type 2 in Adults (ED) Referrals: Robbie Evans, TRANSLATOR DEAF [Primary Care Provider] - (1) Chest pain Qualifiers: Chest pain type: other chest pain Qualified Code(s): R07.89 - Other chest pain; R07.8 - Other chest pain (2) Diabetes Qualifiers: Diabetes mellitus type: type 1 Diabetes mellitus complication status: with unspecified complications Qualified Code(s): E10.8 - Type 1 diabetes mellitus with unspecified complications (3) HLD (hyperlipidemia) Qualifiers: Hyperlipidemia type: pure hypercholesterolemia Qualified Code(s): E78.00 - Pure hypercholesterolemia, unspecified; E78.0 - Pure hypercholesterolemia (4) HTN (hypertension) Qualifiers: Hypertension type: essential hypertension Qualified Code(s): I10 - Essential (primary) hypertension (5) GERD (gastroesophageal reflux disease) Qualifiers: Esophagitis presence: esophagitis presence not specified Qualified Code(s): K21.9 - Gastro-esophageal reflux disease without esophagitis (7) Glaucoma Qualifiers: Glaucoma type: unspecified Laterality: bilateral Qualified Code(s): H40.9 - Unspecified glaucoma
[2018-01-20 12:09] VITALS: BP 134/86
[2018-01-20] MEDS: Cholecalciferol (D-3) 1,000 UNIT TABLET PO SCH (12:13)
--- NOTE | 2018-01-20 14:53 | Discharge Summary ---
- NOTES TO OUTPATIENT PROVIDER Notes to Outpatient Provider: f/u with PCP within a week. Orders not resulted at time of discharge: Pending orders 01/20/18 08:23 NM diana perf SPECT multi [NM] Routine 01/21/18 04:00 Complete Blood Count [HEME] AM 0400 Comprehensive Metabolic Panel AM 0400 01/22/18 04:00 Complete Blood Count [HEME] AM 0400 Comprehensive Metabolic Panel AM 0400 Date of Encounter: 01/20/18 Time of Encounter: 14:50 - Discharge Diagnosis (1) Chest pain Priority: Primary Status: Acute Qualifiers: Chest pain type: other chest pain Qualified Code(s): R07.89 - Other chest pain; R07.8 - Other chest pain (2) Diabetes Priority: Secondary Status: Chronic Qualifiers: Diabetes mellitus type: type 1 Diabetes mellitus complication status: with unspecified complications Qualified Code(s): E10.8 - Type 1 diabetes mellitus with unspecified complications (3) HLD (hyperlipidemia) Priority: Secondary Status: Chronic Qualifiers: Hyperlipidemia type: pure hypercholesterolemia Qualified Code(s): E78.00 - Pure hypercholesterolemia, unspecified; E78.0 - Pure hypercholesterolemia (4) HTN (hypertension) Priority: Secondary Status: Chronic Qualifiers: Hypertension type: essential hypertension Qualified Code(s): I10 - Essential (primary) hypertension (5) GERD (gastroesophageal reflux disease) Priority: Secondary Status: Chronic Qualifiers: Esophagitis presence: esophagitis presence not specified Qualified Code(s) : K21.9 - Gastro-esophageal reflux disease without esophagitis (6) DVT prophylaxis Priority: Primary Status: Acute (7) Glaucoma Priority: Secondary Status: Chronic Qualifiers: Glaucoma type: unspecified Laterality: bilateral Qualified Code(s): H40.9 - Unspecified glaucoma Hospital course: Mr. Helton is a 67 year old male w/PMH of diabetes controlled with oral medications and insulin, GERD, HLD, and HTN presents from the ED with chief complaint of chest pain that began the night prior arrival at approximately 10 PM and patient describes a centralized in his chest with sharp and stabbing pain that was intermittent w/radiation to back. Patient reports diaphoresis but denies nausea, vomiting, shortness of breath. States symptoms have never happened before. Patient denies previous cardiac workup or history. Patient also states he has history of GERD and is unsure of symptoms or heartburn or cardiac related. Based on his cardiovascular risk factors and the HEART score about 5, pt was admitted for ACS rule out. An echocardiogram revealed normal ejection fraction. Her stress test is negative for ischemia. Patient labs revealed hemoglobin A1c 9.6, patient was instructed to continue follow-up with PCP to adjust diabetic medications and to achieve goal A1c. Patient will be discharged home today. Discharge discussed with: patient Time spent discussing smoking cessation with patient: more than 10 minutes - Time Spent with Patient Total time spent providing and/or coordinating discharge services: Greater than 30 minutes - Discharge Medications Home Medications: Aspirin [Lo-Dose Aspirin EC] 81 mg PO DAILY 04/21/16 [History] Insulin Glargine,Hum.rec.anlog [Lantus Solostar] 30 unit SQ QAM 04/21/16 [ History] Simvastatin [Zocor] 20 mg PO HS 04/21/16 [History] Fluticasone Propionate Nasal [Flonase] 120 spray NS DAILY PRN 08/27/16 [History] Latanoprost [Xalatan] 1 drop BOTH EYES DAILY 08/27/16 [History] Amitriptyline [Elavil] 50 mg PO HS 01/19/18 [History] Cholecalciferol (Vitamin D3) [Vitamin D3] 2,000 tab PO BID 01/19/18 [History] Insulin ASPART [Novolog Flexpen] 12 unit SQ TID 01/19/18 [History] Insulin Glargine,Hum.rec.anlog [Lantus Solostar] 50 unit SQ HS 01/19/18 [History ] Lisinopril-HCTZ 20-12.5 [Prinzide 20-12.5] 1 tab PO QAM 01/19/18 [History] Ranitidine HCl [Acid Bottle Carrier] 150 mg PO HS 01/19/18 [History] Saxagliptin HCl [Onglyza] 2.5 mg PO HS 01/19/18 [History] Allergies/Adverse Reactions: 3 Allergy/AdvReac Type Severity Reaction Status Date / Time No Known Allergies Allergy Verified 01/19/18 18:38 Date of admission: 01/19/18 18:24 Primary care physician: Robbie Evans CNP Consults: 01/19/18 18:53 Consult to Branch Controller [CONS] Routine Reason for SW Consult: Please assess patient for possible home needs for post -discharge planning. Pt. takes care of his full-time. Anticipated date of discharge: 01/20/18 - Constitutional Vitals: Temp Pulse Resp BP Pulse Ox 97.5 F L 93 18 134/86 99 01/20/18 12:08 01/20/18 12:08 01/20/18 12:08 01/20/18 12:08 01/20/18 12:08 General appearance: Present: cooperative, A&O X 3, pleasant, no acute distress, answers questions appropriately Exam: PHYSICAL EXAMINATION: GENERAL APPEARANCE: The patient is alert, oriented and in no acute distress. HEENT: Head is normocephalic. The sinuses are nontender. Pupils are equal and reactive. The nares are patent. Oropharynx clear without lesions. NECK: Supple without lymphadenopathy. HEART: Regular rate and rhythm. LUNGS: No crackles or wheezes are heard. ABDOMEN: Soft, nontender, nondistended with good bowel sounds heard. Inguinal area is normal. EXTREMITIES: Without cyanosis, clubbing or edema. NEUROLOGICAL: Gross nonfocal. SKIN: Warm and dry without any rash. - Patient Status Disposition: Home, Self-Care Condition: Fair Functional capacity at discharge: independent ambulation Overall status at discharge: patient is back to baseline - Discharge Instructions Instructions: Chest Pain (ED), Diabetes Mellitus Type 2 in Adults (ED) Follow Up With: Abner Miller MD [Non-Partnered Physician] - 01/22/18 1:20 pm - Diet and Activity Activity: increase activity as tolerated Diet: diabetic diet
--- NOTE | 2018-01-22 16:21 | Electrocardiograph Report ---
[address] [place] [address] Test Date: 2018-01-19 Pat Name: Dk Helton Department: 104 Room: 3B48 Gender: M [employer] V[employer] Clerk: PEGGY : 1950 Requested By: Jose Whitehead Order Number: [id number] Reading MD: Miya Castro Measurements Intervals [place] Rate: 98 P: -3 [place]: 157 QRS: -31 QRSD: 105 T: 47 QT: 339 QTc: 394 Interpretive Statements SINUS RHYTHM INFERIOR MYOCARDIAL INFARCTION, PROBABLY OLD Electronically Signed On 01-22-2018 16:20:04 EDT by Miya Castro
== END 2018-01-20 15:59 | disposition home or self-care (01) ==
LOC: EMEROOARM 16:03 → 3BNU 16:03
PROVIDERS: ADMIT Internal Medicine; ATTEND Internal Medicine

== ENCOUNTER 2019-03-28 09:44 | Observation (INO) ==
[2019-03-28] MEDS ORDERED: Naloxone 0.4 MG/ML INJ IVP PRN (12:05)
[2019-03-28] MEDS ORDERED: *HR* Dextrose 50 % in Water (Syg) 50 ML SYRINGE IVP PRN ×2 (12:16→14:51)
[2019-03-28] MEDS ORDERED: Insulin Regular, Human 100 UNIT/ML IV PRN (12:16)
[2019-03-28] MEDS ORDERED: D5% in 0.45% NACL 1,000 ML IVC PRN (12:16)
[2019-03-28] MEDS ORDERED: D5% in 0.45% NACL w KCl 20 MEQ/1,000 ML MLS IVC PRN (12:16)
[2019-03-28] MEDS ORDERED: Insulin Human Regular 100 UNIT in 0.9 % Sodium Chloride 100 ML IVC SCH (12:30)
[2019-03-28 12:48] LABS: Basophils % 0.2 %; Hematocrit 38.3 % (37.5-50.1); Hemoglobin 13.1 g/dL (12.9-16.9); Immature Granulocytes % 0.6 % (0-4); Lymphocytes # 1.2 K/mcL (0.6-4.6); Lymphocytes % 7.7 %; Mean Corpuscular HGB Conc 34.2 g/dL (31.6-35.5); Mean Corpuscular Hemoglobin 28.9 pg (28.0-33.3); Mean Corpuscular Volume 84.5 fL (83.0-100.0); Mean Platelet Volume 11.2 fL (9.4-12.4); Monocytes # 1.1 K/mcL (0.0-1.3); Monocytes % 6.9 %; Neutrophils # 13.6 K/mcL (1.6-8.9); Platelet Count 233 K/mcL (140-400); Red Blood Count 4.53 M/mcL (4.19-5.50); Red Cell Distribution Width 13.2 % (11.5-14.5); Segmented Neutrophils % 84.6 %
[2019-03-28 13:07] LABS: Calcium 8.2 mg/dL (8.6-10.3); Magnesium 1.8 mg/dL (1.6-2.6); Potassium 4.2 mEq/L (3.5-5.1)
[2019-03-28] MEDS ORDERED: Calcium Gluconate 1gm/50mL 1 GM/50 ML BAG IVPB ONE (13:39)
[2019-03-28] MEDS: Lisinopril 20 MG TABLET PO SCH (13:46)
[2019-03-28] MEDS: *HR* Labetalol 20 MG/4 ML SYRINGE IVP PRN (14:11)
[2019-03-28] MEDS ORDERED: D5% in Water 1,000 ML IVC PRN (14:51)
[2019-03-28] MEDS ORDERED: Dextrose Gel 15 GM/37.5 ML TUBE PO PRN ×2 (14:51)
[2019-03-28] MEDS ORDERED: 0.45 % Sodium Chloride w/KCl 20 MEQ/1,000 ML MLS IVC SCH ×2 (15:00→16:15)
[2019-03-28 15:39] LABS: Albumin 3.8 g/dL (3.5-5.7); Albumin/Globulin Ratio 1.4 (1.1-2.2); Bilirubin,Total 1.3 mg/dL (0.3-1.0); Calcium 8.4 mg/dL (8.6-10.3); Globulin 2.8 g/dL (2.4-3.5); Potassium 3.7 mEq/L (3.5-5.1); Total Protein 6.6 g/dL (6.4-8.9)
[2019-03-28 16:40] LABS: Calcium 8.2 mg/dL (8.6-10.3); Potassium 3.9 mEq/L (3.5-5.1)
[2019-03-28] MEDS: Insulin LISPRO 300 UNITS/3 ML VIAL SQ SCH ×3 (17:24→23:08)
[2019-03-28] MEDS: *HR* Heparin 5,000 UNIT/ML VIAL SQ SCH (17:24)
[2019-03-28] MEDS: Acetaminophen 325 MG TABLET PO PRN (17:29)
[2019-03-28 18:00] LABS: Bilirubin,Urine Negative (Negative); Blood,Urine Trace (Negative); Clarity,Urine Clear (Clear); Color,Urine Yellow (Yellow); Glucose,Urine (UA) >=1000 mg/dL (Normal); Ketones,Urine 15 mg/dL (Negative); Leukocyte Esterase,Urine Negative (Negative); Nitrite,Urine Negative (Negative); Protein,Urine 100 mg/dL (Neg-Trace); Specific Gravity,Urine > 1.030 (1.010-1.025); Urobilinogen,Urine Normal (Normal)
[2019-03-28 18:02] LABS: Bacteria,Urine None Seen per hpf (None-Few); Hyaline Casts,Urine None Seen per lpf (None-Few); RBC,Urine 0-3 per hpf (0-3); Squamous Epithelial Cell,Urine Moderate per lpf (None-Few); WBC,Urine 0-3 per hpf (0-3)
[2019-03-28] MEDS: 0.9 % Sodium Chloride 1,000 ML IVC SCH ×2 (19:13→19:15)
[2019-03-28] MEDS: 0.45 % Sodium Chloride w/KCl 20 MEQ/1,000 ML MLS IVC SCH ×2 (19:14→19:15)
[2019-03-28 20:08] LABS: Estimated Average Glucose 194 mg/dl
[2019-03-28] MEDS ORDERED: Insulin DETEMIR 100 UNIT/ML X5UNITS SQ SCH ×2 (21:00)
[2019-03-28] MEDS ORDERED: Lisinopril 20 MG TABLET PO SCH (21:00)
[2019-03-28] MEDS: Famotidine 20 MG TABLET PO SCH (23:05)
[2019-03-29] MEDS ORDERED: Insulin Human Regular 5 UNIT in 0.9 % Sodium Chloride 10 ML IV ONE (00:46)
[2019-03-29 02:09] LABS: Basophils # 0.1 K/mcL (0.0-0.2); Basophils % 0.3 %; Eosinophils % 0.1 %; Hematocrit 39.7 % (37.5-50.1); Hemoglobin 12.9 g/dL (12.9-16.9); Immature Granulocytes % 0.5 % (0-4); Lymphocytes # 1.3 K/mcL (0.6-4.6); Lymphocytes % 7.2 %; Mean Corpuscular HGB Conc 32.5 g/dL (31.6-35.5); Mean Corpuscular Hemoglobin 28.2 pg (28.0-33.3); Mean Corpuscular Volume 86.9 fL (83.0-100.0); Mean Platelet Volume 11.1 fL (9.4-12.4); Monocytes % 5.7 %; Neutrophils # 15.3 K/mcL (1.6-8.9); Platelet Count 213 K/mcL (140-400); Red Blood Count 4.57 M/mcL (4.19-5.50); Red Cell Distribution Width 13.3 % (11.5-14.5); Segmented Neutrophils % 86.2 %; White Blood Count 17.7 K/mcL (4.3-11.1)
[2019-03-29 02:23] LABS: Chol/HDL Ratio 4.5 (0-4.9)
[2019-03-29 02:24] LABS: Alanine Aminotransferase 13 Units/L (7-52); Albumin 3.7 g/dL (3.5-5.7); Albumin/Globulin Ratio 1.3 (1.1-2.2); Alkaline Phosphatase 51 Units/L (34-104); Aspartate Amino Transferase 19 Units/L (13-39); BUN/Creatinine Ratio 24 (6-26); Bilirubin,Total 1.2 mg/dL (0.3-1.0); Blood Urea Nitrogen 33 mg/dL (8-23); Calcium 8.6 mg/dL (8.6-10.3); Carbon Dioxide 27 mEq/L (23-29); Chloride 102 mEq/L (98-107); Globulin 2.8 g/dL (2.4-3.5); Glucose 206 mg/dL (70-105); Osmolality,Calculated 295 (280-300); Potassium 3.5 mEq/L (3.5-5.1); Sodium 136 mEq/L (136-145); Total Protein 6.5 g/dL (6.4-8.9); eGFR For African Americans > 60 (> 60); eGFR For Non-African Americans 50 (> 60)
[2019-03-29 02:28] LABS: INR 1.2; Prothrombin Time 13.3 Seconds (9.4-12.1)
[2019-03-29] MEDS ORDERED: Insulin Human Regular 10 UNIT in 0.9 % Sodium Chloride 10 ML IV ONE (04:27)
[2019-03-29] MEDS: *HR* Heparin 5,000 UNIT/ML VIAL SQ SCH ×2 (05:40→18:20)
[2019-03-29] MEDS: Lisinopril 20 MG TABLET PO SCH (08:09)
[2019-03-29] MEDS: Insulin DETEMIR 100 UNIT/ML X5UNITS SQ SCH (08:10)
[2019-03-29] MEDS: Acetaminophen 325 MG TABLET PO PRN (08:10)
[2019-03-29] MEDS: Insulin LISPRO 300 UNITS/3 ML VIAL SQ SCH ×4 (08:11→20:53)
[2019-03-29] MEDS: *HR* Labetalol 20 MG/4 ML SYRINGE IVP PRN (17:49)
[2019-03-29] MEDS: amLODIPine 5 MG TABLET PO SCH (18:09)
[2019-03-29] MEDS: Famotidine 20 MG TABLET PO SCH (19:22)
[2019-03-30 05:06] LABS: Basophils # 0.1 K/mcL (0.0-0.2); Eosinophils # 0.2 K/mcL (0.0-0.6); Eosinophils % 1.7 %; Hematocrit 40.4 % (37.5-50.1); Hemoglobin 12.9 g/dL (12.9-16.9); Immature Granulocytes % 0.7 % (0-4); Lymphocytes # 1.9 K/mcL (0.6-4.6); Lymphocytes % 18.7 %; Mean Corpuscular HGB Conc 31.9 g/dL (31.6-35.5); Mean Corpuscular Hemoglobin 28.6 pg (28.0-33.3); Mean Corpuscular Volume 89.6 fL (83.0-100.0); Mean Platelet Volume 11.1 fL (9.4-12.4); Monocytes # 0.9 K/mcL (0.0-1.3); Monocytes % 9.3 %; Neutrophils # 6.9 K/mcL (1.6-8.9); Platelet Count 209 K/mcL (140-400); Red Blood Count 4.51 M/mcL (4.19-5.50); Red Cell Distribution Width 13.1 % (11.5-14.5); Segmented Neutrophils % 68.6 %; White Blood Count 10.1 K/mcL (4.3-11.1)
[2019-03-30] MEDS: *HR* Heparin 5,000 UNIT/ML VIAL SQ SCH (05:21)
[2019-03-30 05:25] LABS: Albumin 3.4 g/dL (3.5-5.7); Albumin/Globulin Ratio 1.2 (1.1-2.2); Bilirubin,Total 0.9 mg/dL (0.3-1.0); Calcium 8.9 mg/dL (8.6-10.3); Globulin 2.8 g/dL (2.4-3.5); Potassium 3.9 mEq/L (3.5-5.1); Total Protein 6.2 g/dL (6.4-8.9)
[2019-03-30 07:00] VITALS: BP 169/99
[2019-03-30] MEDS: Lisinopril 20 MG TABLET PO SCH ×2 (08:42→11:59)
[2019-03-30] MEDS: amLODIPine 5 MG TABLET PO SCH (08:42)
[2019-03-30] MEDS: Insulin DETEMIR 100 UNIT/ML X5UNITS SQ SCH (08:43)
[2019-03-30] MEDS: Insulin LISPRO 300 UNITS/3 ML VIAL SQ SCH (08:44)
[2019-03-30] MEDS ORDERED: Aspirin Enteric Coated 81 MG Tablet PO SCH (09:00)
== END 2019-03-30 13:03 | disposition home or self-care (01) ==
LOC: 3BNU → SUATTDRO 11:04 → 2NNU 12:57 → 2NENU 03-29 10:08
PROVIDERS: ADMIT Internal Medicine; ATTEND Family Medicine